=== PATIENT | female | born 1975 | race Caucasian/White ===

== ENCOUNTER 2020-01-24 22:49 | Emergency (ER) | payer SELFPAY ==
[~2020-01-24] VITALS: Ht 157.5 cm; Wt 83.9 kg
--- NOTE | 2020-01-24 23:00 | NUR ---
Dr. Parsons at bedside for MSE
--- NOTE | 2020-01-24 23:05 | NUR ---
Patient ambulating with steady gait. A&O x4. c/o ANTHONY, neck pain, and low back pain s/p mechanical fall x3 hours ago. No visible injuries noted. Patient states she "blacked out" but did not recall how long. Speech is clear and able to make needs known / follow commands. Breathing even and unlabored. no cough or SOB noted. Denies any / GI distress. Patient able to move extremities freely without difficulty.
--- NOTE | 2020-01-24 23:15 | NUR ---
Patient taken to CT scan in stable condition
--- NOTE | 2020-01-24 23:30 | NUR ---
Patient back from CT scan
[2020-01-25] MEDS ORDERED: TRAMADOL HCL 50 MG TABLET ONE (00:42)
[2020-01-25] MEDS ORDERED: TRAMADOL HCL 50 MG TABLET PO ONE (00:45)
--- NOTE | 2020-01-25 00:46 | NUR ---
Patient discharged to home in stable condition. Written and verbal after care instructions given. Patient verbalizes understanding of instructions. Stressed follow up or return to ER for worsening s/s. Patient ambulating with steady gait. NAD noted
[2020-01-25 00:48] VITALS: BP 108/53
== END 2020-01-25 00:46 | disposition home or self-care (01) ==
LOC: ER 22:52
DX: S06.0X1A Concussion with loss of consciousness of 30 minutes or less, initial encounter (principal); R40.2412 Glasgow coma scale score 13-15, at arrival to emergency department; W01.0XXA Fall on same level from slipping, tripping and stumbling without subsequent striking against object, initial encounter; Y93.89 Activity, other specified; Y92.511 Restaurant or cafe as the place of occurrence of the external cause; R11.10 Vomiting, unspecified; F17.210 Nicotine dependence, cigarettes, uncomplicated; T14.8XXA Other injury of unspecified body region, initial encounter; M50.823 Other cervical disc disorders at C6-C7 level
CPT/HCPCS: 70450; 72125; A4663